=== PATIENT | male | born 1995 | race Two or more races ===

== ENCOUNTER 2023-02-08 09:33 | Emergency (ER) | payer OTHER ==
[~2023-02-08] VITALS: Ht 172.7 cm; Wt 108.9 kg
[2023-02-08] MEDS ORDERED: MUCINEX DM ER1 EACH PO (15:10)
[2023-02-08] MEDS ORDERED: FLONASE16 GM NASAL (15:10)
[2023-02-08] MEDS ORDERED: ZYRTEC10 MG PO (15:10)
[2023-02-08] MEDS ORDERED: AYR SALINE50 ML NASAL (15:10)
== END 2023-02-08 16:00 | disposition home or self-care (01) ==
LOC: ER 09:34
DX: J06.9 Acute upper respiratory infection, unspecified (principal); Z20.822 Contact with and (suspected) exposure to COVID-19